=== PATIENT | female | born 1990 | race Caucasian/White ===

== ENCOUNTER → 2021-07-14 | Outpatient (CLI) | payer BC ==
[~2021-07-14] MED LIST: ZANAFLEX4 MG PO
== END ==
LOC: EMI 11:08
DX: M51.16 Intervertebral disc disorders with radiculopathy, lumbar region (principal)
CPT/HCPCS: 72148

== ENCOUNTER → 2022-02-28 | Outpatient (CLI) | payer BC | LOC: EXRD 13:47 | DX: N18.1 Chronic kidney disease, stage 1 (principal) | CPT/HCPCS: 76775 ==

== ENCOUNTER → 2022-03-23 | Outpatient (CLI) | payer BC ==
[~2022-03-23] MED LIST changes: +BIOTIN PLUS KE1 EACH PO; +CALCIUM500 MG PO; +CRANBERRY500 M3 PO; +ESTARYLLA 0.251 EACH PO; +IROSPAN 24/6 T1 EACH PO; +LIPITOR TAB 2020 MG PO; +PEPCID40 MG PO; +PROGRAF1 MG PO; +VITAMIN B12-FO1 EACH PO; +VITAMIN C 500500 MG PO; +VITAMIN D3125 MCG PO; +ZESTRIL20 MG PO
[2022-03-23 09:04] LABS: HEMOGLOBIN 13.6 gm/dl (12.3-15.3); RED BLOOD COUNT 4.56 M/UL (4.00-5.10); WHITE BLOOD COUNT 11.3 K/UL (4.5-11.0)
== END | disposition home or self-care (01) ==
LOC: CT 08:06
PROVIDERS: Internal Medicine Nephrology
DX: I12.9 Hypertensive chronic kidney disease with stage 1 through stage 4 chronic kidney disease, or unspecified chronic kidney disease (principal); N18.1 Chronic kidney disease, stage 1; Z79.899 Other long term (current) drug therapy
CPT/HCPCS: 77012; 84703; 85025; 85610; 85730; 88305; 88313; 88346; 88348

== ENCOUNTER → 2022-05-16 | Outpatient (CLI) | payer BC | LOC: US 09:38 | DX: R60.9 Edema, unspecified (principal) | CPT/HCPCS: 93970 ==